=== PATIENT | male | born 1955 | race Hispanic/Latino ===

== ENCOUNTER 2018-10-07 09:57 | Outpatient (CLI) | payer BC ==
--- NOTE | 2018-10-07 11:19 | XRay Report ---
CHEST XRAY, 2 VIEWS: History: Smoking. Findings: There is mild diffuse interstitial coarsening. The lungs are hyperexpanded but clear. Moderate centrilobular emphysematous changes are suspected in the upper lobes. No infiltrate, pleural fluid or pneumothorax is detected. The cardiac silhouette and pulmonary vasculature are within normal limits for technique. The bony thorax is unremarkable. IMPRESSION: Changes consistent with COPD. No acute cardiopulmonary process.
== END 2018-10-07 09:58 | disposition home or self-care (01) ==
LOC: CARD 09:57
PROVIDERS: ATTEND Internal Medicine
DX: Z01.818 Encounter for other preprocedural examination (principal); Z87.891 Personal history of nicotine dependence
CPT/HCPCS: 71046; 93005; 93010